=== PATIENT | female | born 1990 | race American Indian/Alaskan Native ===

== ENCOUNTER 2018-11-27 12:40 | Emergency (ER) | payer MEDICAID ==
[2018-11-27 12:53] VITALS: BP 149/97
--- NOTE | 2018-11-27 12:57 | Emergency Department Report ---
Chief Complaint: Earache Stated Complaint: POSS EAR INFECTION Time Seen by Provider: 11/27/18 12:45 - HPI History of Present Illness: This is a 28-year-old female that presents to the ER with bilateral ear pain for 4-5 days. She is nontoxic well in appearance with no signs of distress. Patient denies fever, chills, headache, visual changes. - ROS Review of Systems: CONSTITUTIONAL: Denies fever and chills. Denies weight loss. HEENT: Admits bilateral ear pain. Denies changes in vision and hearing. RESPIRATORY: Admits to congestion. Denies SOB. CV: Denies palpitations and CP. GI: Denies abdominal pain, nausea, vomiting and diarrhea. MSK: Denies myalgia and joint pain. SKIN: Denies rash and pruritus. NEUROLOGICAL: Denies headache and syncope. PSYCHIATRIC: Denies recent changes in mood. Denies anxiety and depression. - Exam Vital Signs: Vital Signs 11/27/18 12:47 Temperature 98.9 F Pulse Rate 91 H Respiratory 16 Rate Blood Pressure 149/97 O2 Sat by Pulse 98 Oximetry Physical Exam: GENERAL: Alert and oriented x 3. No acute distress. Well-nourished. EYES: EOMI. HENT: Erythematous bulging TM's bilaterally. Turbinates congested with mucoid discharge. Moist mucous membranes. No scleral icterus. No cervical lymphadenopathy. LUNGS: Clear to auscultation bilaterally. No accessory muscle use. CARDIOVASCULAR: Regular rate and rhythm. No murmur. No JVD. ABDOMEN: Soft, non-tender and non-distended. EXTREMITIES: No edema. Non-tender. SKIN: No rashes or lesions. Warm. NEUROLOGIC: No focal neurological deficits. CN II-XII grossly intact, but not individually tested. PSYCHIATRIC: Cooperative. Appropriate mood and affect. MSE screening note: Focused history and physical exam performed. Due to findings the following was ordered: ED Medical Decision Making - Medical Decision Making This is a 28-year-old female that presents with bilateral ear pain for 3-4 days. Patient is stable was examined by me. Positive . Patient is discharged with amoxicillin and ibuprofen. Patient was referred to Follow-up with a primary care doctor in 3-5 days or if symptoms worsen and continue return to emergency room as soon as possible. At time of discharge, the patient does not seem toxic or ill in appearance. No acute signs of distress noted. Patient agrees to discharge treatment plan of care. No further questions noted by the patient. ED Disposition for MSE Clinical Impression: Otalgia of both ears Otitis media Qualifiers: Otitis media type: suppurative Chronicity: acute Laterality: bilateral Recurrence: non-recurrent Spontaneous tympanic membrane rupture: without spontaneous rupture Qualified Code(s): H66.003 - Acute suppurative otitis media without spontaneous rupture of ear drum, bilateral Disposition: TO HOME OR SELFCARE Is pt being admited?: No Does the pt Need Aspirin: No Condition: Stable Instructions: Otitis Media (ED) Additional Instructions: Complete antibiotics as prescribed. Avoid drinking alcohol while taking antibiotics to avoid upset stomach. Take pain medication every 6-8 hours as needed for pain. Follow up with a primary care doctor in 2-3 days or return to the ER with worsening symptoms. Prescriptions: Ibuprofen [Motrin 600 MG tab] 600 mg PO Q8H PRN #20 tablet PRN Reason: Pain Amoxicillin [Trimox CAP] 500 mg PO Q8H #20 capsule Referrals: [facility] [Outside] - 3-5 Days [facility] [Outside] - 3-5 Days [facility] [Provider Group] - 3-5 Days Time of Disposition: 13:20
== END 2018-11-27 13:29 | disposition home or self-care (01) ==
LOC: ED 12:40
DX: H66.93 Otitis media, unspecified, bilateral (principal)
CPT/HCPCS: 99282